=== PATIENT | male | born 1940 ===

== ENCOUNTER 2025-01-16 10:52 | Outpatient (CLI) | payer MEDICARE, SELFPAY ==
[2025-01-16 09:13] LABS: Abs Immature Grans 0.06 10^3/uL (0.0-0.06); HCT 44.9 % (40.0-50.0); HGB 14.8 g/dL (13.5-17.5); Immature Grans % 0.9 %; MCH 28.6 pg (27.0-33.0); MCHC 33.0 % (32.0-36.0); MCV 87 fL (80-95); MPV 9.8 fL (8.0-11.0); Platelet Count 164 10^3/uL (130-400); RBC 5.18 10^6/uL (4.36-5.78); RDW 13.4 % (11.8-14.1); RDW-SD 42.5 fL; WBC 6.98 10^3/uL (4.4-10.8)
[2025-01-16 09:58] LABS: ALT 27 U/L (16-63); AST 24 U/L (15-37); Albumin 3.6 g/dL (3.4-5.0); Alkaline Phosphatase 71 U/L (46-116); Anion Gap 4.5 mmol/L (3-11); BUN 18 mg/dL (7-18); Bilirubin, Total 0.7 mg/dL (0.2-1.0); CO2 30.5 mmol/L (21.0-32.0); Calcium 9.2 mg/dL (8.5-10.1); Chloride 104 mmol/L (98-107); Estimated GFR 54.17 (mL/min/1.73m2); Glucose 74 mg/dL (74-106); Potassium 4.7 mmol/L (3.5-5.1); Sodium 139 mmol/L (136-145); TSH 2.38 uIU/mL (0.36-3.74); Total Protein 6.8 g/dL (6.4-8.2)
== END 2025-01-16 10:53 | disposition home or self-care (01) ==
LOC: LBO 10:52
PROVIDERS: Visit Provider Internal Medicine Hematology
DX: C44.229 Squamous cell carcinoma of skin of left ear and external auricular canal (principal); E46 Unspecified protein-calorie malnutrition
CPT/HCPCS: 36415; 80053; 84439; 84443; 85025

== ENCOUNTER 2025-02-13 10:20 | Outpatient (REF) | payer MEDICARE, SELFPAY ==
[2025-02-13 10:36] LABS: Abs Immature Grans 0.07 10^3/uL (0.0-0.06); HCT 39.8 % (40.0-50.0); HGB 13.5 g/dL (13.5-17.5); Immature Grans % 1.1 %; MCH 28.7 pg (27.0-33.0); MCHC 33.9 % (32.0-36.0); MCV 85 fL (80-95); MPV 9.3 fL (8.0-11.0); Platelet Count 228 10^3/uL (130-400); RBC 4.70 10^6/uL (4.36-5.78); RDW 13.0 % (11.8-14.1); RDW-SD 40.1 fL; WBC 6.57 10^3/uL (4.4-10.8)
[2025-02-13 10:54] LABS: ALT 23 U/L (16-63); AST 19 U/L (15-37); Albumin 3.3 g/dL (3.4-5.0); Alkaline Phosphatase 78 U/L (46-116); Anion Gap 5.8 mmol/L (3-11); BUN 15 mg/dL (7-18); Bilirubin, Total 0.6 mg/dL (0.2-1.0); CO2 28.2 mmol/L (21.0-32.0); Calcium 8.5 mg/dL (8.5-10.1); Chloride 100 mmol/L (98-107); Estimated GFR 59.63 (mL/min/1.73m2); Glucose 104 mg/dL (74-106); Potassium 4.5 mmol/L (3.5-5.1); Sodium 134 mmol/L (136-145); TSH 2.12 uIU/mL (0.36-3.74); Total Protein 6.3 g/dL (6.4-8.2)
== END 2025-02-13 10:21 | disposition home or self-care (01) ==
LOC: LBN 10:20
PROVIDERS: Visit Provider Internal Medicine Hematology
DX: E46 Unspecified protein-calorie malnutrition (principal)
CPT/HCPCS: 80053; 84439; 84443; 85025

== ENCOUNTER 2025-03-06 03:11 | Outpatient (CLI) | payer MEDICARE, SELFPAY ==
[2025-03-06 08:36] LABS: Abs Immature Grans 0.05 10^3/uL (0.0-0.06); HCT 42.3 % (40.0-50.0); HGB 13.8 g/dL (13.5-17.5); Immature Grans % 0.7 %; MCH 28.5 pg (27.0-33.0); MCHC 32.6 % (32.0-36.0); MCV 87 fL (80-95); MPV 9.6 fL (8.0-11.0); Platelet Count 166 10^3/uL (130-400); RBC 4.84 10^6/uL (4.36-5.78); RDW 13.5 % (11.8-14.1); RDW-SD 42.9 fL; WBC 6.74 10^3/uL (4.4-10.8)
[2025-03-06 08:59] LABS: ALT 23 U/L (16-63); AST 19 U/L (15-37); Albumin 3.3 g/dL (3.4-5.0); Alkaline Phosphatase 119 U/L (46-116); Anion Gap 7.8 mmol/L (3-11); BUN 17 mg/dL (7-18); Bilirubin, Total 0.6 mg/dL (0.2-1.0); CO2 30.2 mmol/L (21.0-32.0); Calcium 9.0 mg/dL (8.5-10.1); Chloride 103 mmol/L (98-107); Estimated GFR 59.63 (mL/min/1.73m2); Glucose 87 mg/dL (74-106); Potassium 4.5 mmol/L (3.5-5.1); Sodium 141 mmol/L (136-145); TSH 2.09 uIU/mL (0.36-3.74); Total Protein 6.6 g/dL (6.4-8.2)
== END 2025-03-06 03:12 | disposition home or self-care (01) ==
LOC: LBO 03:11
PROVIDERS: Visit Provider Internal Medicine Hematology
DX: E46 Unspecified protein-calorie malnutrition (principal); C44.229 Squamous cell carcinoma of skin of left ear and external auricular canal
CPT/HCPCS: 36415; 80053; 84439; 84443; 85025

== ENCOUNTER 2025-03-27 02:02 | Outpatient (CLI) | payer MEDICARE, SELFPAY ==
[2025-03-27 09:58] LABS: Abs Immature Grans 0.05 10^3/uL (0.0-0.06); HCT 44.7 % (40.0-50.0); HGB 14.9 g/dL (13.5-17.5); Immature Grans % 0.8 %; MCH 29.0 pg (27.0-33.0); MCHC 33.3 % (32.0-36.0); MCV 87 fL (80-95); MPV 9.3 fL (8.0-11.0); Platelet Count 180 10^3/uL (130-400); RBC 5.14 10^6/uL (4.36-5.78); RDW 13.5 % (11.8-14.1); RDW-SD 42.9 fL; WBC 6.51 10^3/uL (4.4-10.8)
[2025-03-27 10:25] LABS: ALT 16 U/L (10-49); AST 24 U/L (<34); Albumin 4.2 g/dL (3.4-5.0); Alkaline Phosphatase 97 U/L (46-116); Anion Gap 5.8 mmol/L (3-11); BUN 19 mg/dL (9-23); Bilirubin, Total 0.80 mg/dL (0.2-1.2); CO2 31.2 mmol/L (20.0-31.0); Calcium 9.4 mg/dL (8.3-10.6); Chloride 103 mmol/L (98-107); Glucose 77 mg/dL (74-106); Potassium 4.7 mmol/L (3.5-5.1); Sodium 140 mmol/L (136-145); TSH 2.06 uIU/mL (0.55-4.78); Total Protein 6.8 g/dL (5.7-8.2)
== END 2025-03-27 02:03 | disposition home or self-care (01) ==
LOC: LBO 02:02
PROVIDERS: Visit Provider Internal Medicine Hematology
DX: E46 Unspecified protein-calorie malnutrition (principal); C44.229 Squamous cell carcinoma of skin of left ear and external auricular canal
CPT/HCPCS: 36415; 80053; 84439; 84443; 85025